=== PATIENT | female | born 1995 | race Caucasian/White ===

== ENCOUNTER 2017-03-07 01:58 | Emergency (ER) | payer BC ==
[2017-03-07] MEDS ORDERED: PROPOFOL/EMULSION 1,000 MG/100 ML BOTTLE IV ONE (02:01)
[2017-03-07] MEDS ORDERED: ETOMIDATE 20 MG/10 ML VIAL IVP ONE (02:02)
[2017-03-07] MEDS ORDERED: NS 1,000 ML IV ONE ×3 (02:08→02:36)
[2017-03-07] MEDS ORDERED: SUCCINYLCHOLINE CHLORIDE 200 MG/10 ML VIAL IVP ONE (02:13)
--- NOTE | 2017-03-07 02:16 | EDPHY ---
H & P HPI/ROS: HPI CHIEF COMPLAINT: Found down, unresponsive, possible drug overdose, possible SI , seizure HISTORY OF PRESENT ILLNESS: This patient 22-year-old female, she presents to the emergency room by EMS emergently transported for being found down in her dorm room unresponsive in the bathroom. Per roommates reported by EMS that the patient may have taken all of her medications that she had in her pill bottles in her dorm room. Her roommates found her in the bathroom on the ground unclear exactly how long she has been down for. EMS arrived they did witness her have a total of 4 intermittent seizures. There was no return to normal mental state. They tell me the seizures were generalized tonic-clonic approximately lasting a minute or 4 separate ones the last seizure she had lasted a minute they did give 5 mg IV Versed prior to come to the emergency room. Upon arrival to the emergency room the patient is completely unresponsive GCS of 3, no identifiable trauma on exam however her pupils are 3 mm mid range, minimally reactive to light, no dysconjugate gaze. She is agonal respirations. She is being bagged by EMS upon arrival. The medications that came with her were ibuprofen 800 mg, Vimpat 100 mg, Vyvanse 40 mg, escitalopram 10 mg, amphetamine-dextroamphetamine, also another pill bottles ecitalopram 20 mg, all of these pill bottles are empty. They are all different dates unclear how many of each medication she took if any. It is also reported to me by EMS that she was intoxicated with alcohol this evening. Upon arrival to the emergency room again patient GCS of 3, agonal respirations, being bagged. She was immediately brought to ER room 1 where I assessed her, due to her agonal respirations she was being bagged there is no active seizure activity at this time. I emergently intubated her. Uncomplicated 7 0 ET tube MAC 4 blade direct visualization of cords. 1 attempt no complications. Patient placed on full electronic device monitor vital signs are stable. Unresponsive. 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 History comes from what is obtain by EMS. Exam Constitutional unresponsive, GCS of 3, triage nursing summary reviewed, vital signs reviewed Eyes normal conjunctivae and sclera, EOMI, PERRLA. HENT head/neck atraumatic. normal inspection, atraumatic, moist mucus membranes, no epistaxis, neck supple/ no meningismus, no raccoon eyes. Respiratory agonal respirations Cardiovascular rate normal, regular rhythm, no murmur, no edema, distal pulses normal. Gastrointestinal soft, non-tender, no rebound, no guarding, normal bowel sounds, no distension, no pulsatile mass. Genitourinary no CVA tenderness. Musculoskeletal no midline vertebral tenderness, full range of motion, no calf swelling, no tenderness of extremities, no meningismus, good pulses, neurovascularly intact. Skin pink, warm, & dry, no rash, skin atraumatic. Neurologic unresponsive Heme/Lymph/Immune no lymphadenopathy. Differential Diagnosis: Includes but is not limited to in a particular order, status Seizure, recurrent seizure, polysubstance ingestion, alcohol intoxication , drug overdose, suicide attempt, intracranial bleed, seizure, status seizure, SSRI overdose, acetaminophen overdose, electrolyte disturbance, acute DC acute stroke Medical Decision Making: plan for this patient emergent intubation, blood work, drug screen, Tylenol level, salicylate level, chest x-ray, CT scan head and neck to make sure patient does not have trauma however no external trauma on exam. But given patient's GCS of 3 with agonal respirations found down the bathroom will perform CT. Will IV hydrate. Re-evaluation: 0220AM: is noted to me by Simone LORENZO that the patient had a brief 5-10 second generalized tonic-clonic seizure in CT. I have ordered 2 mg IV Versed, 1 g of Keppra, propofol drip and bolus. I will speak with neuro ICU at [facility] about this patient's recurrent seizures in concern for status seizure, recurrent seizure. CT scan of the head without IV contrast. The results of the study are negative for anything acute The study was read by Dr. rocha. I viewed the images myself on the PACS system. CT scan of the cervical spine without IV contrast The results of the study are negative for anything acute The study was read by Dr. rocha I viewed the images myself on the PACS system. ED x-ray chest one view: Endotracheal tube is in place right at the umu will be removed 1 cm back will repeat chest x-ray. Lung guillermo are good cardiac size normal. Image interpreted by myself. 0238AM: I spoke with [facility] specifically the neuro cardiovascular sonographer Dr. Howell she has accepted this patient. Patient be flown by helicopter to neuro ICU. At this time patient 0239AM: Patient is hemodynamically stable however her ABG did result her pH is critically low at 7 bicarb elevated at 74 her PaO2 was okay she has a base excess -11. Patient be given amp of bicarb event will be turned up to increase her respiratory rate to 22. It was set at 16. Will blow off her pCO2 she will also get bicarb to help with her critically low pH. Critical Care: Total Critical Care Time Spent Managing this Patient: 65 Minutes. This time was spent Exclusively with this patient. This Care was exclusive of procedures. The Organ System/life at risk was neurological, respiratory This Patient was in Critical Condition because status seizures, respiratory failure, severe acidosis 0242AM: The following medications have been given 5 mg IV Versed by EMS, 4 mg IV Versed here in the emergency room, 1 g Keppra load, propofol drip, 20 mg of etomidate. 0243: Blood work and CT is reviewed. Patient will be transferred by helicopter to [facility] neuro ICU. Patient is stable at this time for transfer. EKG interpretation by me on record in [employer] system. Impression time of EKG 2:30 a.m., sinus rhythm rate of 88 intraventricular conduction delay. 0246AM: I was able to find old records on this patient. In fact I saw and evaluated this patient back in September 2016 for a very similar issue at that time she was also intubated [facility] for intractable seizures or status. She does have a history of seizure disorder on Vimpat. 0302AM: Reviewed repeat chest x-ray endotracheal tube is at the clavicle will advance 1/2 cm. Also on this repeat chest x-ray the OG tube look to be in the trachea. We removed the OG tube. Will repeat x-ray. We did make multiple attempts to pass the OG tube unsuccessfully. Will hold putting a new OG tube in and will advance endotracheal tube 1/2 cm repeat chest x-ray. If this chest x-ray looks okay will allow her to be flown to [facility] neuro ICU. ED x-ray chest one view repeat: Endotracheal tube in better position. Right upper lobe no pneumonia appreciated. 0321: 1 re-evaluation this patient keep seizing intermittently. Patient is given 4 more mg IV Ativan. Also fosphenytoin load the makes a total of 9 mg IV Versed, fosphenytoin load, Keppra load, 20 mix per kg, 4 mg IV Ativan, propofol bolus, propofol drip. Still seizing. Patient will be emergently transported by helicopter to neuro ICU. Patient may need phenobarbital load and IV Versed gtt. Repeat ABGs improved. Less acidotic. Source: EMS - Medical/Surgical History Hx Asthma: Yes Hx Chronic Respiratory Disease: No Hx Diabetes: No Hx Cardiac Disease: No Hx Renal Disease: No Hx Cirrhosis: No Hx Alcoholism: No Hx HIV/AIDS: No Hx Splenectomy or Spleen Trauma: No Other PMH: Partial complex seizures - Social History Smoking Status: Never smoked Constitutional: Initial Vital Signs Temperature (C) 37 C 03/07/17 02:35 Heart Rate 93 03/07/17 02:35 Respiratory Rate 16 03/07/17 02:35 Blood Pressure 147/72 H 03/07/17 02:35 O2 Sat (%) 87 L 03/07/17 02:35 O2 Delivery Mode Bag Valve Mask Allergies/Adverse Reactions: Penicillins Allergy (Verified 10/02/16 22:14) Home Medications: Medication Instructions Recorded Amphetamine 10/02/16 Cyclobenzaprine 10/02/16 Escitalopram Oxalate 10/02/16 Hydrocodon-Acetaminophen 5-325 10/02/16 LORAZEPAM 10/02/16 Vimpat 10/02/16 Vyvanse 10/02/16 Medical Decision Making - Data Points Laboratory Results: Laboratory Results 03/07/17 02:00 03/07/17 02:00 03/07/17 03/07/17 03/07/17 03:04 02:22 02:00 WBC RBC Hgb POC Hgb Hct POC Hct MCV MCH MCHC RDW Plt Count MPV Neut % (Auto) Lymph % (Auto) [place] % (Auto) Eos % (Auto) Baso % (Auto) Nucleat RBC Rel Count Absolute Neuts (auto) Absolute Lymphs (auto) Absolute Monos (auto) Absolute Eos (auto) Absolute Basos (auto) Absolute Nucleated RBC Immature Gran % Immature Gran # Puncture Site RIGHT RADIAL LEFT RADIAL Patient Temperature 37.0 DEGREES DEGREES 37.0 DEGREES DEGREES pCO2 53 mmHg H mmHg 74 mmHg H* mmHg (34-38) (34-38) pO2 109 mmHg H mmHg 116 mmHg H mmHg (65-75) (65-75) Total CO2 25 mEq/L mEq/L 22 mEq/L L mEq/L (23-27) (23-27) ABG pH 7.26 L D 7.06 L* (7.35-7.45) (7.35-7.45) ABG PO2/FiO2 Ratio 182 RATIO RATIO 116 RATIO RATIO ABG O2 Saturation 96 % H % 95 % % (92-95) (92-95) ABG Base Excess -4.0 mEq/L L mEq/L -11.5 mEq/L L mEq/L (-2.5-2.5) (-2.5-2.5) O2 Concentration % 60 % % 100 % % (0-100) (0-100) Actual Respiration Rate 16 Set Respiration Rate 24 16 SIMV YES YES Tidal Volume 450 450 PEEP 5 5 Peak Inspir Pressure 26.4 Pressure Support 7 7 POC Sodium Sodium 145 mEq/L H mEq/L (134-144) POC Potassium Potassium 4.1 mEq/L mEq/L (3.5-5.2) POC Chloride Chloride 107 mEq/L mEq/L (97-110) Carbon Dioxide 24 mEq/l mEq/l (22-31) Bicarbonate 23 mEq/L mEq/L 20 mEq/L L mEq/L (22-26) (22-26) Anion Gap 14 mEq/L mEq/L (8-16) POC BUN BUN 17 mg/dL mg/dL (7-23) Creatinine 0.8 mg/dL mg/dL (0.6-1.0) POC Creatinine Estimated GFR > 60 Glucose 109 mg/dL H mg/dL (70-100) POC Glucose Calcium 9.7 mg/dL mg/dL (8.5-10.4) Total Bilirubin 0.4 mg/dL mg/dL (0.1-1.4) Conjugated Bilirubin 0.4 mg/dL mg/dL (0.0-0.5) Unconjugated Bilirubin 0.0 mg/dL mg/dL (0.0-1.1) AST 91 IU/L H IU/L (14-46) ALT 54 IU/L H IU/L (9-52) Alkaline Phosphatase 85 IU/L IU/L (38-126) Troponin I < 0.012 ng/mL ng/mL (0-0.034) Total Protein 8.3 g/dL H g/dL (6.3-8.2) Albumin 4.7 g/dL g/dL (3.5-5.0) Lipase 135.0 IU/L IU/L (23-300) Beta HCG, Qual Salicylates < 1.0 mg/dL L mg/dL (2.0-20.0) Acetaminophen < 10 mcg/mL L mcg/mL (10.0-30.0) Ethyl Alcohol 240 mg/dL H mg/dL (0-10) 03/07/17 03/07/17 03/07/17 02:00 02:00 01:56 WBC 13.67 10^3/uL H 10^3/uL (3.80-9.50) RBC 4.35 10^6/uL 10^6/uL (4.18-5.33) Hgb 13.0 g/dL g/dL (12.6-16.3) POC Hgb 13.9 gm/dL gm/dL (12.3-15.9) Hct 39.8 % % (38.0-47.0) POC Hct 41 % % (35.5-47.5) MCV 91.5 fL fL (81.5-99.8) MCH 29.9 pg pg (27.9-34.1) MCHC 32.7 g/dL g/dL (32.4-36.7) RDW 12.7 % % (11.5-15.2) Plt Count 389 10^3/uL 10^3/uL (150-400) MPV 10.4 fL fL (8.7-11.7) Neut % (Auto) 39.8 % % (39.3-74.2) Lymph % (Auto) 48.2 % H % (15.0-45.0) [place] % (Auto) 8.0 % % (4.5-13.0) Eos % (Auto) 2.3 % % (0.6-7.6) Baso % (Auto) 1.2 % % (0.3-1.7) Nucleat RBC Rel Count 0.0 % % (0.0-0.2) Absolute Neuts (auto) 5.43 10^3/uL 10^3/uL (1.70-6.50) Absolute Lymphs (auto) 6.59 10^3/uL H 10^3/uL (1.00-3.00) Absolute Monos (auto) 1.10 10^3/uL H 10^3/uL (0.30-0.80) Absolute Eos (auto) 0.31 10^3/uL 10^3/uL (0.03-0.40) Absolute Basos (auto) 0.17 10^3/uL H 10^3/uL (0.02-0.10) Absolute Nucleated RBC 0.00 10^3/uL 10^3/uL (0-0.01) Immature Gran % 0.5 % % (0.0-1.1) Immature Gran # 0.07 10^3/uL 10^3/uL (0.00-0.10) Puncture Site Patient Temperature pCO2 pO2 Total CO2 ABG pH ABG PO2/FiO2 Ratio ABG O2 Saturation ABG Base Excess O2 Concentration % Actual Respiration Rate Set Respiration Rate SIMV Tidal Volume PEEP Peak Inspir Pressure Pressure Support POC Sodium 143 mEq/L mEq/L (134-144) Sodium POC Potassium 3.4 mEq/L mEq/L (3.3-5.0) Potassium POC Chloride 107 mEq/L mEq/L (96-108) Chloride Carbon Dioxide Bicarbonate Anion Gap POC BUN 18 mg/dL mg/dL (7-23) BUN Creatinine POC Creatinine 1.0 mg/dL mg/dL (0.6-1.2) Estimated GFR Glucose POC Glucose 113 mg/dL H mg/dL (70-100) Calcium Total Bilirubin Conjugated Bilirubin Unconjugated Bilirubin AST ALT Alkaline Phosphatase Troponin I Total Protein Albumin Lipase Beta HCG, Qual NEGATIVE Salicylates Acetaminophen Ethyl Alcohol Medications Given: Discontinued Medications Sodium Chloride (Ns) 1,000 mls @ 0 mls/hr IV ONCE ONE PRN Reason: Wide Open Stop: 03/07/17 02:09 Last Admin: 03/07/17 02:17 Dose: 1,000 mls Succinylcholine Chloride (Quelicin) 100 mg IVP EDNOW ONE Stop: 03/07/17 02:14 Last Admin: 03/07/17 03:24 Dose: Not Given Point of Care Test Results: 03/07/17 01:56 POC Sodium 143 POC Potassium 3.4 POC Chloride 107 POC BUN 18 POC Creatinine 1.0 POC Glucose 113 H Departure - Departure Disposition: Acute Care Hospital Not [facility] Clinical Impression: Seizure, Status epilepticus, Acidosis Respiratory failure Qualifiers: Chronicity: acute Respiratory failure complication: hypoxia Qualified Code(s): J96.01 - Acute respiratory failure with hypoxia Condition: Critical Referrals: Patient,NotPresent [Unknown] - As per Instructions
[2017-03-07] MEDS ORDERED: levETIRAcetam 1,000 MG in NS 100 ML IV ONE (02:19)
[2017-03-07] MEDS ORDERED: MIDAZOLAM 2 MG/2 ML VIAL IVP ONE ×2 (02:19→02:35)
[2017-03-07 02:22] LABS: % IMMATURE GRANULYOCYTES 0.5 % (0.0-1.1); ABSOLUTE IMMATURE GRANULOCYTES 0.07 10^3/uL (0.00-0.10); ADD DIFF? NO; ADD MORPH? NO; ADD SCAN? NO; ATYPICAL LYMPHOCYTE FLAG 10 (0-99); FRAGMENT RBC FLAG 0 (0-99); HEMATOCRIT 39.8 % (38.0-47.0); LEFT SHIFT FLG 0 (0-99); LIPEMIA HEMOLYSIS FLAG 80 (0-99); MEAN CELL HEMOGLOBIN 29.9 pg (27.9-34.1); MEAN CELL HEMOGLOBIN CONCENTR. 32.7 g/dL (32.4-36.7); MEAN CELL VOLUME 91.5 fL (81.5-99.8); MEAN PLATELET VOLUME 10.4 fL (8.7-11.7); PLATELET CLUMPS FLAG 0 (0-99); PLATELET COUNT 389 10^3/uL (150-400); RED BLOOD CELL COUNT 4.35 10^6/uL (4.18-5.33); RED CELL DISTRIBUTION WIDTH 12.7 % (11.5-15.2)
[2017-03-07] MEDS ORDERED: PROPOFOL/EMULSION 100 ML IV SCH ×2 (02:30→03:15)
[2017-03-07 02:31] LABS: ALANINE AMINOTRANSFERASE 54 IU/L (9-52); ALBUMIN 4.7 g/dL (3.5-5.0); ALKALINE PHOSPHATASE 85 IU/L (38-126); ANION GAP 14 mEq/L (8-16); ASPARTATE AMINOTRANSFERASE 91 IU/L (14-46); BILIRUBIN,TOTAL 0.4 mg/dL (0.1-1.4); BILIRUBIN-CONJUGATED 0.4 mg/dL (0.0-0.5); CALCIUM 9.7 mg/dL (8.5-10.4); CARBON DIOXIDE 24 mEq/l (22-31); CHLORIDE 107 mEq/L (97-110); CREATININE 0.8 mg/dL (0.6-1.0); ETHANOL SERUM 240 mg/dL (0-10); GLOMERULAR FILTRATION RATE > 60; GLUCOSE 109 mg/dL (70-100); POTASSIUM 4.1 mEq/L (3.5-5.2); SALICYLATE < 1.0 mg/dL (2.0-20.0); SODIUM 145 mEq/L (134-144); TOTAL PROTEIN 8.3 g/dL (6.3-8.2)
[2017-03-07 02:34] LABS: BASE EXCESS -11.5 mEq/L (-2.5-2.5); BICARBONATE 20 mEq/L (22-26); MEASURED OXYGEN SATURATION 95 % (92-95); PO2 116 mmHg (65-75); TCO2 22 mEq/L (23-27)
[2017-03-07 02:35] LABS: O2 CONCENTRATIION 100 % (0-100); P/F RATIO 116 RATIO; SIMV YES
[2017-03-07] MEDS ORDERED: MIDAZOLAM 10 MG/2 ML VIAL IVP ONE (02:35)
[2017-03-07 02:36] LABS: PATIENT RATE 16; PIP 26.4; PRESSURE SUPPORT 7
[2017-03-07 02:37] VITALS: RESP 16
[2017-03-07 02:37] LABS: PCO2 74 mmHg (34-38)
[2017-03-07] MEDS ORDERED: SODIUM BICARBONATE 50 MEQ/50 ML SYR IVP ONE (02:37)
--- NOTE | 2017-03-07 02:40 | CPEKG ---
Heart Rate: 88 RR Interval: 682 QRSD Interval: 138 QT Interval: 408 QTC Interval: 494 QRS [place]: 149 T Wave [place]: 7 EKG Severity - ABNORMAL ECG - EKG Impression: ATRIAL FIBRILLATION, V-RATE 85-106 EKG Impression: NONSPECIFIC INTRAVENTRICULAR CONDUCTION DELAY EKG Impression: MINIMAL ST DEPRESSION, INFERIOR LEADS Electronically Signed By: Mirian Hatfield 08-Mar-2017 19:45:15
[2017-03-07 02:42] LABS: TROPONIN I < 0.012 ng/mL (0-0.034)
[2017-03-07] MEDS ORDERED: NS IV ONE ×2 (02:53→03:00)
[2017-03-07] MEDS ORDERED: FOSPHENYTOIN IV ONE ×2 (02:53→03:00)
[2017-03-07] MEDS ORDERED: LORazepam 2 MG/ML INJ ONE (03:08)
[2017-03-07 03:14] LABS: BICARBONATE 23 mEq/L (22-26); MEASURED OXYGEN SATURATION 96 % (92-95); PCO2 53 mmHg (34-38); PO2 109 mmHg (65-75); TCO2 25 mEq/L (23-27)
[2017-03-07 03:15] LABS: O2 CONCENTRATIION 60 % (0-100); P/F RATIO 182 RATIO; PRESSURE SUPPORT 7; SIMV YES
[2017-03-07] MEDS ORDERED: LORazepam 2 MG/ML INJ IVP ONE ×2 (03:20)
[2017-03-07 04:08] VITALS: BP 144/74; PULSE 101; TEMP 98.1; O2SAT 97
[2017-03-07] MEDS ORDERED: ETOMIDATE 40 MG/20 ML INJ ONE (04:22)
[2017-03-07] MEDS ORDERED: MIDAZOLAM 2 MG/2 ML VIAL ONE (04:23)
== END 2017-03-07 03:20 | disposition short-term general hospital (02) ==
LOC: EDUNIT#
PROC: 0BH17EZ Insertion of Endotracheal Airway into Trachea, Via Natural or Artificial Opening (ICD-10-PCS; principal; 2017-03-07)
DX: G40.901 Epilepsy, unspecified, not intractable, with status epilepticus (principal); J96.01 Acute respiratory failure with hypoxia; E87.2 Acidosis
CPT/HCPCS: 82947-QW; 96374; G0480; J0330; J1953; J2060; J2250; J2704; Q2009